=== PATIENT | female | born 1975 | race Caucasian/White ===

== ENCOUNTER 2017-01-30 19:46 | Emergency (ER) | payer OTHER ==
[~2017-01-30] VITALS: Ht 162.6 cm; Wt 58.1 kg
--- NOTE | 2017-01-30 20:06 | NUR ---
to bed 2 ambulatory c/o generalized body pain since this morning. pt aaox4 no acute distress noted, resp even and unlabored. pt denies trauma. pending er md soriano.
[2017-01-30] MEDS ORDERED: ONDANSETRON 4 MG TAB.RAPDIS SL ONE (20:30)
[2017-01-30] MEDS ORDERED: DIAZEPAM 10 MG TABLET PO ONE (20:30)
[2017-01-30] MEDS ORDERED: MORPHINE SULFATE INJ 2 MG/ML DISP.SYRIN IM ONE (20:30)
[2017-01-30] MEDS ORDERED: ONDANSETRON 4 MG TAB.RAPDIS ONE (20:43)
[2017-01-30] MEDS ORDERED: MORPHINE SULFATE INJ 4 MG/ML DISP.SYRIN ONE (20:43)
[2017-01-30] MEDS ORDERED: DIAZEPAM 10 MG TABLET ONE (20:43)
--- NOTE | 2017-01-30 20:52 | NUR ---
pt medicated as ordered.
--- NOTE | 2017-01-30 21:29 | NUR ---
pt back from radiology. pending ct cervical spine result.
--- NOTE | 2017-01-30 22:22 | NUR ---
Patient discharged to home in stable condition. Written and verbal after care instructions given. Patient verbalizes understanding of instruction. ambulatory with a steady gait noted. pt aaox4 no acute distress noted, resp even and unlabored. advice pt not to drive or operate any machinery due to pt was given narcotic medicine. pt verbalize understanding.
[2017-01-30 22:24] VITALS: BP 127/62
== END 2017-01-30 22:24 | disposition home or self-care (01) ==
LOC: ER 19:52
DX: M54.12 Radiculopathy, cervical region (principal)
CPT/HCPCS: 72125; 96372; 99284; A4606; J2270; Q0162; Z7610

== ENCOUNTER 2017-02-03 15:59 | Emergency (ER) | payer OTHER ==
[~2017-02-03] VITALS: Ht 162.6 cm; Wt 56.2 kg
[2017-02-03 16:02] VITALS: BP 108/69
[2017-02-03] MEDS ORDERED: ACETAMINOPHEN 325 MG TABLET PO STA (16:25)
[2017-02-03] MEDS ORDERED: ACETAMINOPHEN 325 MG TABLET ONE (16:40)
== END 2017-02-03 17:12 | disposition home or self-care (01) ==
LOC: ER 16:02
DX: M25.511 Pain in right shoulder (principal); G89.29 Other chronic pain
CPT/HCPCS: 73030; 99284; A4606; Z7610

== ENCOUNTER 2017-06-29 12:22 | Inpatient (IN) | payer OTHER ==
[~2017-06-29] VITALS: Ht 162.6 cm; Wt 60.8 kg
[2017-06-29] MEDS ORDERED: HYDROMORPHONE 1 MG/1 ML DISP.SYRIN IV ONE ×2 (13:00→15:30)
[2017-06-29] MEDS ORDERED: PANTOPRAZOLE 40 MG VIAL IV ONE (13:00)
[2017-06-29] MEDS ORDERED: ONDANSETRON HCL/PF 4 MG/2 ML VIAL IV ONE (13:00)
[2017-06-29] MEDS ORDERED: ONDANSETRON HCL/PF 4 MG/2 ML VIAL ONE (13:07)
[2017-06-29] MEDS ORDERED: HYDROMORPHONE 1 MG/1 ML DISP.SYRIN ONE ×2 (13:08→15:09)
[2017-06-29] MEDS ORDERED: FAMOTIDINE/PF INJ 20 MG/2 ML VIAL IV ONE (13:10)
[2017-06-29 13:22] LABS: BASOPHILS % (AUTO) 0.3 % (0.0-2.0); EOSINOPHILS # (AUTO) 0.1 /CMM (0.0-0.7); EOSINOPHILS % (AUTO) 0.7 % (0.0-6.0); HEMATOCRIT 42 % (33-45); HEMOGLOBIN 13.9 g/dL (11.5-14.8); LYMPHOCYTES # (AUTO) 2.5 /CMM (0.8-4.8); LYMPHOCYTES % (AUTO) 22.2 % (20.0-44.0); MEAN CORPUSCULAR HEMOGLOBIN 29 PG (26.0-33.0); MEAN CORPUSCULAR HGB CONC 33 g/dl (31.0-36.0); MEAN CORPUSCULAR VOLUME 88 fL (82-100); MONOCYTES # (AUTO) 0.6 /CMM (0.1-1.30); MONOCYTES % (AUTO) 4.9 % (2.0-12.0); NEUTROPHILS # (AUTO) 8.2 /CMM (1.8-8.9); NEUTROPHILS % (AUTO) 71.9 % (43.0-81.0); PLATELET COUNT (AUTO) 226 /CMM (150-450); RDW COEFFICIENT OF VARIATION 13.5 (11.5-15.0); RED BLOOD CELL COUNT(AUTO) 4.76 MIL/uL (4.0-5.2); WHITE BLOOD COUNT (AUTO) 11.4 K/uL (4.3-11.0)
[2017-06-29 13:23] LABS: ALBUMIN 4.2 g/dL (3.4-5.0); BILIRUBIN,TOTAL 0.4 mg/dL (0.2-1.0); CALCIUM, SERUM 9.3 mg/dL (8.5-10.1); CREATININE 0.6 mg/dL (0.6-1.3); POTASSIUM 3.3 mmol/L (3.5-5.1); TOTAL PROTEIN, SERUM 8.6 g/dL (6.4-8.2)
--- NOTE | 2017-06-29 13:26 | NUR ---
Pt c/o centralized ABD pain, 8-9/10, nausea, dizziness, and ofe rectal bleeding (> 1 cup) this AM. Pt denies CP, SOB, no other complaints, moderate distress noted.
[2017-06-29] MEDS ORDERED: HYDR-552 PO (13:34)
[2017-06-29] MEDS ORDERED: AMIT100T2 PO (13:34)
[2017-06-29] MEDS ORDERED: ZOLP10TA2 PO (13:34)
[2017-06-29 13:50] LABS: INR 0.91 (0.87-1.13); PROTHROMBIN TIME 9.5 SECS (9.5-12.7)
--- NOTE | 2017-06-29 13:57 | NUR ---
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
[2017-06-29] MEDS ORDERED: IOHEXOL-300 100 ML VIAL IV ONE (13:59)
[2017-06-29] MEDS ORDERED: IV NS 0.9% 250 ML IV ONE (13:59)
--- NOTE | 2017-06-29 14:39 | NUR ---
ROOM 108
[2017-06-29] MEDS ORDERED: HYDROCODONE/APAP 5/325MG 1 EACH TABLET PO PRN (15:00)
[2017-06-29] MEDS ORDERED: ONDANSETRON HCL/PF 4 MG/2 ML VIAL IVP PRN (15:00)
[2017-06-29] MEDS ORDERED: Z GUARD REMEDY 2 OZ OINT TP PRN (15:00)
[2017-06-29] MEDS ORDERED: MAGNESIUM HYDROXIDE 30 ML UDC PO PRN (15:00)
[2017-06-29] MEDS ORDERED: ACETAMINOPHEN 325 MG TABLET PO PRN (15:00)
--- NOTE | 2017-06-29 15:25 | NUR ---
Called report to
--- NOTE | 2017-06-29 15:45 | NUR ---
PT RECEIVED FROM ER.
[2017-06-29] MEDS: PANTOPRAZOLE 40 MG VIAL IV SCH (16:11)
[2017-06-29 16:21] LABS: APPEARANCE,URINE CLEAR (CLEAR); BILIRUBIN,URINE NEGATIVE (NEGATIVE); BLOOD, URINE 3+ Ery/uL (NEGATIVE); COLOR,URINE YELLOW (YELLOW); KETONES,URINE NEGATIVE (NEGATIVE); LEUKOCYTE ESTERASE ,URINE NEGATIVE (NEGATIVE); NITRITE, URINE NEGATIVE (NEGATIVE); PROTEIN,URINE NEGATIVE (NEGATIVE); UGLUCOSE NEGATIVE (NEGATIVE); UROBILINOGEN,URINE 0.2 EU/dL (0.2)
[2017-06-29] MEDS ORDERED: MORPHINE SULFATE INJ 10 MG/ML DISP.SYRIN IV PRN (16:30)
[2017-06-29 16:33] VITALS: BP 125/60
[2017-06-29 16:36] LABS: BACTERIA,URINE None seen /HPF (None Seen); RBC,URINE 21-50 /HPF (0-2); SQUAMOUS EPITHELIAL CELL,UR Few /HPF (None Seen); WBC,URINE 0-2 /HPF (0-3)
--- NOTE | 2017-06-29 18:00 | NUR ---
RN CLOSING NOTES PT SLEEPING NOW. ADM 2MG MORPHINE IV X 1 W/ EFFECT FOR 03/11 PAIN. CALL LIGHT IN REACH. NPO. NON SLIP SOCKS ON. ULTRASOUND ABD DONE AT BEDSIDE. PROTONIX IV ADM. PT STATES SHE HAS MENSES AT PRESENT. GUIAC NEGATIVE...
[2017-06-29 18:35] VITALS: BP 143/96
--- NOTE | 2017-06-29 19:30 | NUR ---
RN INITIAL NOTES RECEIVED PT AWAKE ON BED, A/O X4. ON ROOM AIR WITH NO S/S OF RESP DISTRESS, CURRENTLY DENIES ANY PAIN. PT IS CONTINENT, AMBULATORY. LEFT HAND 18G SL, FLUSHED AND PATENT, NO S/S OF INFILTRATION/INFECTION, DRESSING CDI. BED LOW AND LOCKED, SIDERAILS UP, CALL LIGHT WITHIN REACH. WILL MONITOR. Addendum: 06/29/17 at 2003 by CLOTILDE CHOI RN PT IS SR ON THE MONITOR, HR 70'S
[2017-06-29 20:00] VITALS: BP 114/75
--- NOTE | 2017-06-29 21:00 | NUR ---
RN NOTES SPOKE TO RAMOS KAUFFMAN (FOR DR. STONE) AND SHE ORDERED FOR PATIENT TO CONTINUE NPO AFTER MIDNIGHT. MRCP IN AM TO RULE OUT CHOLECYSTITIS. DIRECT AND INDIRECT BILIRUBIN, AND AMYLASE TO BE ADDED FOR AM LABS
[2017-06-29] MEDS: AMITRIPTYLINE HCL 25 MG TABLET PO SCH (21:05)
[2017-06-29] MEDS: ZOLPIDEM TARTRATE 5 MG TABLET PO PRN (21:05)
[2017-06-29] MEDS: MORPHINE SULFATE INJ 4 MG/ML DISP.SYRIN IV PRN (21:09)
[2017-06-29] MEDS ORDERED: LORAZEPAM INJ 2 MG/ML VIAL IV ONE (23:00)
[2017-06-29] MEDS ORDERED: LORAZEPAM INJ 2 MG/ML VIAL IV PRN (23:00)
[2017-06-29] MEDS ORDERED: LORAZEPAM INJ 2 MG/ML VIAL ONE (23:01)
[2017-06-30] VITALS: BP 91/54
[2017-06-30] MEDS: MORPHINE SULFATE INJ 4 MG/ML DISP.SYRIN IV PRN ×3 (01:20→10:36)
[2017-06-30 04:00] VITALS: BP_SYST 96; BP_SYST 97; BP_DIAS 61; BP_DIAS 65
--- NOTE | 2017-06-30 06:30 | NUR ---
RN CLOSING NOTES PT REMAINS STABLE OF THE MOMENT. ALL DUE MEDS GIVEN, AM CARE PROVIDED. WILL ENDORSE MARANDA TO AM RN
[2017-06-30 06:53] LABS: BASOPHILS % (AUTO) 0.4 % (0.0-2.0); EOSINOPHILS # (AUTO) 0.1 /CMM (0.0-0.7); EOSINOPHILS % (AUTO) 1.8 % (0.0-6.0); HEMATOCRIT 34 % (33-45); HEMOGLOBIN 11.6 g/dL (11.5-14.8); LYMPHOCYTES # (AUTO) 2.9 /CMM (0.8-4.8); LYMPHOCYTES % (AUTO) 42.7 % (20.0-44.0); MEAN CORPUSCULAR HEMOGLOBIN 30 PG (26.0-33.0); MEAN CORPUSCULAR HGB CONC 34 g/dl (31.0-36.0); MEAN CORPUSCULAR VOLUME 87 fL (82-100); MONOCYTES # (AUTO) 0.4 /CMM (0.1-1.30); MONOCYTES % (AUTO) 5.5 % (2.0-12.0); NEUTROPHILS # (AUTO) 3.4 /CMM (1.8-8.9); NEUTROPHILS % (AUTO) 49.6 % (43.0-81.0); PLATELET COUNT (AUTO) 199 /CMM (150-450); RED BLOOD CELL COUNT(AUTO) 3.88 MIL/uL (4.0-5.2); WHITE BLOOD COUNT (AUTO) 6.8 K/uL (4.3-11.0)
[2017-06-30 07:12] LABS: ALBUMIN 3.1 g/dL (3.4-5.0); BILIRUBIN,TOTAL 0.2 mg/dL (0.2-1.0); CALCIUM, SERUM 8.3 mg/dL (8.5-10.1); CREATININE 0.6 mg/dL (0.6-1.3); MAGNESIUM 2.2 mg/dL (1.8-2.4); POTASSIUM 3.7 mmol/L (3.5-5.1); TOTAL PROTEIN, SERUM 6.5 g/dL (6.4-8.2)
[2017-06-30 08:00] VITALS: BP 98/66
--- NOTE | 2017-06-30 08:00 | NUR ---
TELE1/RN AM SHIFT INITIAL NOTES RECEIVED PT AWAKE SITTING IN BED, PT A/O X 4, COMPLAINT OF DISCOMFORT IN THE ABDOMINAL AREA AND CHILLS. NO FEVER, WARM BLANKETS GIVEN. ON NPO STATUS FOR MRCP PROCEDURE THIS MORNING. NOTED LIQUID STOOL WITH FRESH BLOOD, COLLECTED FOR STOOL OB. ON ROOM AIR SATURATING @ 99%, ON TELE WITH SINUS RHYTHM, HR 86. IV SITE FLUSHED, PATENT WITH NO S/S OF INFECTION, SL. SCHEDULED AM MEDS TO BE GIVEN. CL WITHIN REACHED AND SAFETY MAINTAINED. ON GOING MONITORING.
--- NOTE | 2017-06-30 08:35 | NUR ---
TELE1/RN ROUNDS - DR. PEDROZA UPDATED PT'S CONDITION. PT SEEN & EXAMINED BY DR. PEDROZA. NO NEW ORDERS RECEIVED AT THIS TIME. MONITORING CONTINUED.
--- NOTE | 2017-06-30 08:42 | NUR ---
TELE1/RN OFF FLOOR - MRCP PT LEFT TELE1 UNIT IN STABLE CONDITION VIA WHEELCHAIR FOR MRCP PROCEDURE.
[2017-06-30] MEDS: PANTOPRAZOLE 40 MG VIAL IV SCH ×2 (09:34→16:59)
--- NOTE | 2017-06-30 09:47 | NUR ---
TELE1/RN ROUNDS - DR. JAIN PT BACK ON FLOOR POST [facility]. UPDATED PT'S CONDITION. PT SEEN & EXAMINED BY DR. JAIN, WITH NEW ORDER RECEIVED TO START PT ON CLEAR LIQUIDS. ORDER NOTED AND CARRIED. Addendum: 06/30/17 at 1118 by SITA ALONSO RN ADDENDUM: ALSO NOTIFIED DR. JAIN REGARDING LIQUID BLOODY STOOL COLLECTED.
--- NOTE | 2017-06-30 11:00 | NUR ---
TELE1/RN SEVERE ABDOMINAL PAIN ANSWERED PT'S CALL COMPLAINT OF SEVERE ABDOMINAL PAIN RATED 10/10 AFTER RECEIVING PRN MORPHINE. SPOKE TO DR. JAIN, UPDATED PT'S CONDITION. NEW ORDER RECEIVED FOR DILAUDID 1MG Q4HRS PRN FOR SEVERE PAIN. ORDER NOTED AND CARRIED.
[2017-06-30] MEDS: HYDROMORPHONE 1 MG/1 ML DISP.SYRIN IV PRN ×3 (11:07→21:09)
[2017-06-30 12:00] VITALS: BP 122/83
[2017-06-30] MEDS: MAG HYDROX/AL HYDROX/SIMETH 30 ML UDC PO PRN (12:56)
[2017-06-30] MEDS: HYDROMORPHONE INJ 2 MG/ML DISP.SYRIN IV PRN ×2 (13:18→17:07)
--- NOTE | 2017-06-30 14:00 | NUR ---
TELE1/RN EGD - CONSENT CONSENT OF EGD OBTAINED FROM PT, FILED IN CHART. DRs. PEDROZA & CRISTOBAL MADE AWARE. PROCEDURE SCHEDULED @ 9:30AM TOMORROW, 07/01/17.
--- NOTE | 2017-06-30 15:00 | NUR ---
TELE1/RN ROUNDS - DR. CASTILLO PT SEEN & EXAMINED BY DR. CASTILLO. NO NEW ORDERS RECEIVED AT THIS TIME. ON GOING MONITORING.
[2017-06-30 16:00] VITALS: BP_SYST 109; BP_DIAS 64; BP_DIAS 69
[2017-06-30] MEDS: LORAZEPAM 1 MG TABLET PO PRN (18:23)
--- NOTE | 2017-06-30 18:35 | NUR ---
TELE1/RN RAPID RESPONSE PT COMPLAINT OF SOB, VERBALIZED THAT SHE FEELS SOMETHING IS STUCK IN HER THROAT. PT ASSESSED, LUNG SOUNDS ARE CLEAR, SATURATING @ 100%, SHE DENIES PAIN. PRN ATIVAN GIVEN. STILL INSISTED SHE CAN'T BREATHE, RESPIRATIONS ARE NORMAL. CHARGE NURSE AND DR. JAIN NOTIFIED. RAPID RESPONSE CALLED IN. WITH ORDERS FROM DR. HENRY FOR STAT CHEST, THROAT & NECK X-RAY, ABG AND EKG. WITH PATIENT MONITORING. Addendum: 06/30/17 at 7 by SITA ALONSO RN ADDENDUM: PT PLACED ON NON-REBREATHER MASK.
--- NOTE | 2017-06-30 19:05 | NUR ---
PROCESSING TECH OPENING NOTES RECEIVED REPORT FROM VERENICE IVY. PATIENT A/A/O X4, S/P RAPID RESPONSE. CURRENTLY ON NON-BREATHER MASK W/O LABORED BREATHING NOTED. SATING WELL @ 99%. DENIES SOB @ THIS TIME. ON TELE SINUS RHYTHM-SINUS TACH IN THE 100S. DENIES ANY CHEST PAIN OR DISCOMFORT. LEFT HAND IV #18 INTACT & PATENT W/ DRESSING CDI. ABDOMEN SOFT & NON-DISTENDED UPON ASSESSMENT. DENIES ANY ABDOMINAL PAIN OR DISCOMFORT @ THIS TIME. SAFETY MEASURES IN PLACE W/ SIDE RAILS UP, BED LOCKED IN LOWEST POSITION & CALL LIGHT WITHIN REACH. SISTER @ BEDSIDE. WILL CONTINUE TO MONITOR.
[2017-06-30 19:37] LABS: ABG BASE EXCESS -3.5 mmol/L; ABG OXYGEN SATURATION 98.7 % (92.0-98.5); ABG PCO2 39.6 mmHg (35.0-45.0); ABG PH 7.356 (7.350-7.450); AaDO2 293.4 mmHg; COHb 0.3 % (0.5-1.5); MetHb 0.6 % (0.0-1.5); O2Hb 97.8 % (94.0-97.0); SITE, ABG Left Radial
--- NOTE | 2017-06-30 19:56 | NUR ---
TELE1/RN AM SHIFT END NOTES STAT EKG, RESULT SINUS TACHY, ABG WAS NORMAL, CHEST X-RAY NORMAL. AWAITING FOR RESULTS OF THROAT AND NECK. PT PLACED BACK ON ROOM AIR SATURATING @ 97-100%, DENIES SOB. PT ENDORSED TO PM NURSE TO CONTINUE CARE. ALSO ENDORSED TO PLACE PT NPO AFTER MIDNIGHT FOR EGD SCHEDULED @ 0930 AND TO COMPLETE PRE-OP CHECKLIST. CL WITHIN REACHED AND SAFETY MAINTAINED.
[2017-06-30 20:00] VITALS: BP 116/79
[2017-06-30] MEDS: ZOLPIDEM TARTRATE 5 MG TABLET PO PRN (21:08)
[2017-06-30] MEDS: AMITRIPTYLINE HCL 25 MG TABLET PO SCH (21:08)
[2017-07-01] VITALS: BP 111/73
[2017-07-01] MEDS: HYDROMORPHONE INJ 2 MG/ML DISP.SYRIN IV PRN ×4 (00:06→20:30)
[2017-07-01 04:00] VITALS: BP 117/72
[2017-07-01 06:44] LABS: BASOPHILS % (AUTO) 0.3 % (0.0-2.0); EOSINOPHILS # (AUTO) 0.1 /CMM (0.0-0.7); EOSINOPHILS % (AUTO) 1.6 % (0.0-6.0); HEMATOCRIT 35 % (33-45); HEMOGLOBIN 12.1 g/dL (11.5-14.8); LYMPHOCYTES # (AUTO) 2.1 /CMM (0.8-4.8); LYMPHOCYTES % (AUTO) 25.6 % (20.0-44.0); MEAN CORPUSCULAR HEMOGLOBIN 30 PG (26.0-33.0); MEAN CORPUSCULAR HGB CONC 34 g/dl (31.0-36.0); MEAN CORPUSCULAR VOLUME 87 fL (82-100); MONOCYTES # (AUTO) 0.6 /CMM (0.1-1.30); MONOCYTES % (AUTO) 7.2 % (2.0-12.0); NEUTROPHILS # (AUTO) 5.4 /CMM (1.8-8.9); NEUTROPHILS % (AUTO) 65.3 % (43.0-81.0); PLATELET COUNT (AUTO) 213 /CMM (150-450); RDW COEFFICIENT OF VARIATION 13.6 (11.5-15.0); RED BLOOD CELL COUNT(AUTO) 4.05 MIL/uL (4.0-5.2); WHITE BLOOD COUNT (AUTO) 8.3 K/uL (4.3-11.0)
[2017-07-01 07:02] LABS: CALCIUM, SERUM 8.6 mg/dL (8.5-10.1); CREATININE 0.7 mg/dL (0.6-1.3); POTASSIUM 3.8 mmol/L (3.5-5.1)
--- NOTE | 2017-07-01 07:10 | NUR ---
RN NOTES RECEIVED PT ON BED, A/O x4, ON RA , RESPIRATION EVEN AND UNLABORED, NO DISTRESS NOTED, NPO THIS AM FOR EGD, LOUIS ANY DISTRESS , ON TELE SR IN 90'S , LEFT HAND IV #18 INTACT & PATENT W/ DRESSING CDI. SR UP x3, SAFETY MEASURES IN PLACE , BED LOCKED IN LOWEST POSITION , CALL LIGHT WITHIN REACH REACH . WILL CONTINUE TO MONITOR CLOSELY
[2017-07-01] MEDS: LORAZEPAM 1 MG TABLET PO PRN ×4 (07:44→20:31)
[2017-07-01 08:00] VITALS: BP 107/70
[2017-07-01] MEDS: PANTOPRAZOLE 40 MG VIAL IV SCH ×2 (08:13→16:39)
--- NOTE | 2017-07-01 09:13 | NUR ---
RN NOTES PT GOING OT OR FOR EGD
--- NOTE | 2017-07-01 10:20 | NUR ---
RN NOTES PT BACK FROM OR , BP =109/70 , HR 101, R=18, PT LOUIS ANY DISTRESS .CONTINUE TO MONITOR .
[2017-07-01 12:00] VITALS: BP_SYST 98; BP_DIAS 57; BP_DIAS 59
[2017-07-01 16:00] VITALS: BP 103/69
--- NOTE | 2017-07-01 16:00 | NUR ---
RN NOTES 3 LARGE BLOODY LOOSE STOOL NOTED , DR JAIN NOTIFIED, NOW NEW ORDER GIVEN , PT DISTRESS NOTED VSS STABLE , CONTINUE TO MONITOR
--- NOTE | 2017-07-01 18:38 | NUR ---
RN NOTES PT OUT OF BED WALKING IN THE ROOM, VSS STABLE , R ARM IV SITED CDI, PT ON CLEAR LIQUID DIET , NO SIGNIFICANT CHANGES NOTED ON THIS SHIFT , WILL ENDORSE TO FIREWORKS INSPECTOR NURSE FOR MARANDA .
--- NOTE | 2017-07-01 19:30 | NUR ---
TELE/RN NOTES: RECEIVED PT. IN BED W/ FAMILY MEMBER BY BESIDE. A/O X 3. ON TELE ST @ 95. RESPIRATIONS EVEN AND UNLABORED. NOT IN ANY ACUTE DISTRESS NOTED. HL ON LFA PATENT AND INTACT W/ NO S/S OF INFECTION/INFILTRATION NOTED. PT. APPEARS TO BE VERY ANXIOUS. CALL LIGHT W/ REACH. WILL CONTINUE TO MONITOR.
[2017-07-01] MEDS: MAG HYDROX/AL HYDROX/SIMETH 30 ML UDC PO PRN (19:44)
[2017-07-01 20:00] VITALS: BP 104/72
--- NOTE | 2017-07-01 20:40 | NUR ---
TELE/RN NOTES: PT. CALLED REALLY ANXIOUS STATING THAT SHE HAS BEEN BLEEDING SO WHY HAVE NOT THEY INFUSED ANY BLOOD TO ME. EXPLAINED PT. HER LAB VALUES AND PROTOCOL TO TRANSFUSE. PT. REQUESTED MEDICATION FOR PAIN AND ANXIETY. GAVE PER ORDER W/ GOOD RELIEF. CALL LIGHT W/REACH.
[2017-07-01] MEDS: AMITRIPTYLINE HCL 25 MG TABLET PO SCH (21:13)
[2017-07-01] MEDS: ZOLPIDEM TARTRATE 5 MG TABLET PO PRN (22:54)
[2017-07-02] VITALS: BP_SYST 102; BP_SYST 110; BP_DIAS 60; BP_DIAS 70
--- NOTE | 2017-07-02 02:00 | NUR ---
RN NOTES SPOKE TO PATIENT SUPPORT SPECIALIST RAHUL. AT THIS TIME, NO SCHEDULE FOR COLONOSCOPY.
[2017-07-02] MEDS: MAG HYDROX/AL HYDROX/SIMETH 30 ML UDC PO PRN ×2 (03:25→18:50)
[2017-07-02] MEDS: HYDROMORPHONE INJ 2 MG/ML DISP.SYRIN IV PRN ×3 (03:26→11:34)
[2017-07-02 04:00] VITALS: BP 102/70
[2017-07-02 06:44] LABS: BASOPHILS % (AUTO) 0.6 % (0.0-2.0); EOSINOPHILS # (AUTO) 0.2 /CMM (0.0-0.7); EOSINOPHILS % (AUTO) 2.7 % (0.0-6.0); HEMATOCRIT 36 % (33-45); HEMOGLOBIN 12.1 g/dL (11.5-14.8); LYMPHOCYTES # (AUTO) 2.6 /CMM (0.8-4.8); LYMPHOCYTES % (AUTO) 43.6 % (20.0-44.0); MEAN CORPUSCULAR HEMOGLOBIN 29 PG (26.0-33.0); MEAN CORPUSCULAR HGB CONC 34 g/dl (31.0-36.0); MEAN CORPUSCULAR VOLUME 87 fL (82-100); MONOCYTES # (AUTO) 0.4 /CMM (0.1-1.30); MONOCYTES % (AUTO) 6.7 % (2.0-12.0); NEUTROPHILS # (AUTO) 2.8 /CMM (1.8-8.9); NEUTROPHILS % (AUTO) 46.4 % (43.0-81.0); PLATELET COUNT (AUTO) 220 /CMM (150-450); RED BLOOD CELL COUNT(AUTO) 4.13 MIL/uL (4.0-5.2); WHITE BLOOD COUNT (AUTO) 6.1 K/uL (4.3-11.0)
--- NOTE | 2017-07-02 07:00 | NUR ---
RN OPENING NOTES RECV'D REPORT FROM NOC RN. PT ANXIOUS ABOUT HEALTH STATUS. RT PLACED PT ON NON REBREATHER O2 SATS 100%. WILL ADM ATIVAN PO. INFORMED PT GI DR. PEDROZA TO CONSULT TODAY FOR POSSIBLE COLONOSCOPY PER DR. JAIN'S NOTES. HGB HOLDING AT 12.1. LFA22G PIV. CLEAR LIQUIDS. DENIES PAIN AT PRESENT. BED IN LOW LOCKED POSITION. CALL LIGHT IN REACH. WILL CONT TO MONITOR.
--- NOTE | 2017-07-02 07:00 | NUR ---
RN OPENING NOTES RECV'D REPORT FROM RAMU RN. PT OBTUNDED NON VERBAL EYES OPEN. VENT TRACH NPO X MEDS. GT CLAMPED. RH 20G PIV. ADULT PROTECTIVE SERVICES REPORT PER RAMU RN DUE TO HOME NEGLECT SUSPECTED FROM MULTIPLE HOSPITALIZATIONS. DECUB STAGE III COCCYX MULTIPLE. OROZCO YELLOW CLOUDY OUTPUT. DEEP SUCTIONED PT SATS WENT FROM 90% UP TO 100% NOW. BED IN LOW LOCKED POSITION. CALL LIGHT IN REACH. WILL CONT TO MONITOR CLOSELY. Addendum: 07/02/17 at 0839 by CHRISTIE GUARDADO RN HOB ELEVATED. Addendum: 07/02/17 at 1751 by CHRISTIE GUARDADO RN ENTERED ON WRONG PT
[2017-07-02 07:08] LABS: CALCIUM, SERUM 8.7 mg/dL (8.5-10.1); CREATININE 0.7 mg/dL (0.6-1.3)
--- NOTE | 2017-07-02 07:16 | NUR ---
TELE/RN NOTES: PT. C/O PAIN GAVE DILAUDID 2 MGS IV PER ORDER AT 0630 . PT. RECHECKED AT 0700 PAIN IS MUCH BETTER PER PT. NOT IN ANY RESPIRATORY DISTRESS NOTED. CALL LIGHT W/ REACH. REPORT GIVEN TO NEXT SHIFT NURSE.
[2017-07-02] MEDS: LORAZEPAM 1 MG TABLET PO PRN ×3 (07:52→18:50)
[2017-07-02] MEDS: PANTOPRAZOLE 40 MG VIAL IV SCH ×2 (07:52→17:24)
[2017-07-02 08:00] VITALS: BP 114/79
[2017-07-02] MEDS ORDERED: BISACODYL (5 MG) 5 MG TABLET.DR PO ONE (09:00)
[2017-07-02] MEDS ORDERED: PEG 3350/NA SULF,BICARB,CL/KCL 4,000 ML BOTTLE PO ONE ×2 (09:00→13:30)
--- NOTE | 2017-07-02 09:03 | NUR ---
DR. PEDROZA CALLED BY PHONE TO ORDER GOLYTELY, NPO X MEDS, BISACODYL. WANTS ME TO CALL HIM IN AFTERNOON WITH STATUS OF STOOL COLOR. IF CLEAR HE WILL TRY TO PERFORM COLONOSCOPY TODAY.
[2017-07-02 12:00] VITALS: BP 112/77
--- NOTE | 2017-07-02 13:20 | NUR ---
UPDATED DR. PEDROZA REGARDING STOOL COLOR. PT HAS HAD 3 WATERY, RED, PARTICULATE STOOLS AFTER BISACODYL AND ONE BOTTLE GOLYTELY. NEW ORDER FOR SECOND BOTTLE GOLYTELY ORDERED AND PLAN FOR COLONSOSCOPY EARLY POSSIBLE IN AM.
[2017-07-02 16:00] VITALS: BP_SYST 111; BP_SYST 112; BP_DIAS 76; BP_DIAS 77
--- NOTE | 2017-07-02 17:53 | NUR ---
RN CLOSING NOTES PT STARTED ON SECOND BOTTLE OF GLOYTELY. BMs STILL RED WITH PARTICULATES. PLAN FOR COLONSCOPY N AM. NPO. WILL ENDORSE TO RAMU IVY.
--- NOTE | 2017-07-02 18:50 | NUR ---
PATIENT C/O ABDOMINAL PAIN 06/11 PER PATIENT VERBALIZED "I NEED DILAUDID',offered tylenol/maalox refused,md notified ,with new orders left and carried out.per md no narcotics pt. need to take prn tylenol/maalox.increase the dose of ativan to q 4hours,will endorsed .
--- NOTE | 2017-07-02 19:30 | NUR ---
RN/MS NOTES: RECEIVED PT. IN BED W/ HOB ELEVATED. A/O X 4. W/ O2 @ 2LPM VIA N/C SAT. 96%. PT. W/ HER 2ND BOTTLE OF GOLYTLE FOR COLONOSCOPY IN AM. FAMILY AT BESIDE. NOT IN ANY ACUTE RESPIRATORY DISTRESS NOTED. NPO STATUS MAINTAINED. CALL LIGHT W/REACH. ALL NEEDS MEET. WILL CONTINUE TO MONITOR.
[2017-07-02 20:00] VITALS: BP 111/74
[2017-07-02] MEDS: AMITRIPTYLINE HCL 25 MG TABLET PO SCH (21:21)
[2017-07-02] MEDS: ZOLPIDEM TARTRATE 5 MG TABLET PO PRN (21:26)
--- NOTE | 2017-07-02 23:06 | NUR ---
RN/MS NOTES: PT. ENCOURAGED TO FINISH HER GOLYTLE BEFORE THE MORNING FOR HER COLONOSCOPY . " I WILL FINISH IT IN THE MORNING. ADVISED TO FINISH SO HER STOMACH CAN BE CLEAR. "I AM TRYING BUT I CAN ONLY DO IT SLOWLY." WILL CONTINUE TO MONITOR. CALL LIGHT W/ REACH.
--- NOTE | 2017-07-03 01:00 | NUR ---
RN/MS NOTES: PT. SLEEPING W/ RESPIRATIONS EVEN AND UNLABORED. PT. IS SNORING. WAKED UP PT. TO FINISH HER GOLYTLY BUT SAID THAT SHE WANTS TO SLEEP. SHE HAD NOT ANY ANY SLEEP FOR LAST FEW DAYS. WILL TRY TO ENCOURAGE PT. TO FINISH THE PREP. CALL LIGHT W/REACH.
--- NOTE | 2017-07-03 02:54 | NUR ---
RN/MS NOTES: PT. SOUND ASLEEP SNORING. TRIED TO WAKE UP PT. BUT STILL SLEEPING. NOT IN ANY ACUTE RESPIRATORY DISTRESS NOTED.
[2017-07-03 04:00] VITALS: BP 107/75
--- NOTE | 2017-07-03 04:26 | NUR ---
RN/MS NOTES: PT. SLEEPING BUT EASILY AROUSABLE. TRIED TO WAKE UP TO FINISH BOWEL PREP FOR COLONOSCOPY. PT. NODDED YES OPENED HER EYES AND WENT BACK TO SLEEP. NOT IN ANY RESPIRATORY DISTRESS. RESPIRATIONS EVEN AND UNLABORED.
--- NOTE | 2017-07-03 06:04 | NUR ---
RN/MS NOTES: PT. STILL SNORING AND SLEEPING. RESPIRATIONS EVEN AND UNLABORED. HAD TWO BM THIS SHIFT SOFT BROWN SMALL. WILL ENDORSE NEXT SHIFT TO CONTINUE POC.
--- NOTE | 2017-07-03 06:51 | NUR ---
RN/MS NOTES: TRIED TO WAKE UP PT. AGAIN BUT STILL SLEEPY . WILL ENDORSE TO NEXT SHIFT FOR MARANDA.
--- NOTE | 2017-07-03 07:00 | NUR ---
RN OPENING NOTES REPORT RECV'D FROM NOC RN. PT RESTING COMFORTABLY IN BED. APPROXIMATELY 25% OF GOLYTELY REMAINING. "LIGHT BROWN" WATERY STOOLS PER NOC RN. ENCOURAGED PT TO COMPLETE GOLYTELY. PLAN FOR COLONOSCOPY THIS AM. LFA 22G PIV PATENT. BED IN LOW LOCKED POSITION. NPO X MEDS SINCE YESTERDAY. CALL LIGHT IN REACH. WILL CONT TO MONITOR.
[2017-07-03 08:00] VITALS: BP 122/74
[2017-07-03] MEDS ORDERED: ANESTHESIA TRAY IN PYXIS 1 EA TRAY MC ONE (08:07)
[2017-07-03] MEDS: PANTOPRAZOLE 40 MG VIAL IV SCH (09:04)
--- NOTE | 2017-07-03 09:45 | NUR ---
SENT TO COLONOSCOPY PROCEDURE.
--- NOTE | 2017-07-03 11:09 | NUR ---
RETURNED TO UNIT FROM COLONOSCOPY. NURSE STATES "COLITIS". PT TO START ON CLEARS AND LACTATED RINGERS SOLUTION. PT A&OX4. WILL MONITOR VS PER PROTOCOL.
[2017-07-03] MEDS: LORAZEPAM 1 MG TABLET PO PRN (11:19)
[2017-07-03] MEDS: MAG HYDROX/AL HYDROX/SIMETH 30 ML UDC PO PRN (11:19)
--- NOTE | 2017-07-03 13:45 | NUR ---
RN D/C NOTES D/C IV. WALKED PT TO CAR. DENIES DIZZINESS. A&OX4.
== END 2017-07-03 15:18 | disposition home or self-care (01) | DRG 254 ==
LOC: ER 12:24 → MEDSG1 15:29 → TELE1 19:21 → MEDSG1 07-02 12:47
PROVIDERS: ADMIT Family Medicine; ATTEND Family Medicine
PROC: 0DB68ZZ Excision of Stomach, Via Natural or Artificial Opening Endoscopic (ICD-10-PCS; principal; 2017-07-01 09:47)
PROC: 0DD78ZX Extraction of Stomach, Pylorus, Via Natural or Artificial Opening Endoscopic, Diagnostic (ICD-10-PCS; principal; 2017-07-01 09:47)
PROC: 0DDE8ZX Extraction of Large Intestine, Via Natural or Artificial Opening Endoscopic, Diagnostic (ICD-10-PCS; 2017-07-03)
DX: K31.7 Polyp of stomach and duodenum (principal); K56.7 Ileus, unspecified; F41.9 Anxiety disorder, unspecified; K92.2 Gastrointestinal hemorrhage, unspecified; R13.10 Dysphagia, unspecified; D25.9 Leiomyoma of uterus, unspecified; E87.6 Hypokalemia; K76.9 Liver disease, unspecified; K58.0 Irritable bowel syndrome with diarrhea; M47.9 Spondylosis, unspecified; M50.322 Other cervical disc degeneration at C5-C6 level; D18.03 Hemangioma of intra-abdominal structures; K83.8 Other specified diseases of biliary tract; D72.829 Elevated white blood cell count, unspecified
CPT/HCPCS: 36415; 36600; 70360-TC; 71010-TC; 74000-TC; 74181-TC; 76700-TC; 80048-TC; 80053-TC; 81000-TC; 82105; 82150-TC; 82272-TC; 82962-TC; 83540-TC; 83690-TC; 83735-TC; 84100-TC; 84703-TC; 85025-TC; 85730-TC; 86850-TC; 87081-TC; 88305-TC; 88313-TC; 88342; A4606; C9113; J1170; J2060; J2270; J2405; J2704; J3490; J7050; J7120; Q9967; Z7610

== ENCOUNTER 2017-07-09 12:12 | Outpatient (CLI) | payer OTHER ==
[~2017-07-09 12:12] MED LIST: AMIT100T2 PO; HYDR-552 PO; ZOLP10TA2 PO
[2017-07-09] MEDS ORDERED: ZOLPIDEM TARTRATE 10 MG TABLET PO PRN (12:30)
[2017-07-09] MEDS ORDERED: HYDROCODONE/APAP 5/325MG 1 EACH TABLET PO PRN (12:30)
[2017-07-09 12:34] VITALS: BP 116/88
[2017-07-09] MEDS ORDERED: Medication Not On Formulary EA (Amitriptyline Hcl 100 MG) PO SCH (22:00)
== END 2017-07-09 23:59 | disposition home or self-care (01) ==
LOC: MSC 12:12
PROVIDERS: ATTEND Internal Medicine
DX: D18.03 Hemangioma of intra-abdominal structures (principal); F41.9 Anxiety disorder, unspecified; F32.9 Major depressive disorder, single episode, unspecified

== ENCOUNTER 2018-01-12 17:36 | Emergency (ER) | payer OTHER ==
[~2018-01-12] VITALS: Ht 162.6 cm; Wt 61.2 kg
[2018-01-12] MEDS ORDERED: KETOROLAC TROMETHAMINE INJ 30 MG/ML VIAL ONE (18:10)
[2018-01-12] MEDS ORDERED: KETOROLAC TROMETHAMINE INJ 60 MG/2 ML VIAL IM ONE (18:30)
[2018-01-12] MEDS ORDERED: ACETAMINOPHEN 650 MG/20.3 ML UDC PO ONE (18:30)
[2018-01-12] MEDS ORDERED: ACETAMINOPHEN 325 MG TABLET ONE (18:31)
[2018-01-12 18:45] VITALS: BP 125/80
== END 2018-01-12 18:46 | disposition home or self-care (01) ==
LOC: ER 17:40
DX: M54.2 Cervicalgia (principal); J06.9 Acute upper respiratory infection, unspecified; R05 Cough; Z98.890 Other specified postprocedural states
CPT/HCPCS: A4606; J1885; Z7610

== ENCOUNTER 2018-01-31 13:29 | Emergency (ER) | payer OTHER ==
[~2018-01-31] VITALS: Ht 162.6 cm; Wt 58.1 kg
[2018-01-31 13:37] VITALS: BP 126/72
== END 2018-01-31 14:56 | disposition home or self-care (01) ==
LOC: ER 13:33
DX: R21 Rash and other nonspecific skin eruption (principal); Z98.890 Other specified postprocedural states; Z60.2 Problems related to living alone
CPT/HCPCS: A4606; Z7610

== ENCOUNTER 2018-04-07 12:52 | Outpatient (CLI) | payer OTHER ==
[2018-04-07 12:53] VITALS: BP 100/60
== END 2018-04-07 23:59 | disposition home or self-care (01) ==
LOC: MSC 12:52
PROVIDERS: ATTEND Internal Medicine
DX: R10.13 Epigastric pain (principal); F32.9 Major depressive disorder, single episode, unspecified; F41.9 Anxiety disorder, unspecified; D18.09 Hemangioma of other sites

== ENCOUNTER 2018-04-07 13:27 | Emergency (ER) | payer OTHER ==
[~2018-04-07] VITALS: Ht 157.5 cm; Wt 60.8 kg
--- NOTE | 2018-04-07 13:45 | NUR ---
Came to ER c/o epigastric and L sided abd pain with nausea and vomiting since last night. RR is even and unlabored with NAD noted. skin is warm and non diaphoretic. Assisted to hospital gown. Awaiting md for eval. Will continuously monitor the patient.
[2018-04-07] MEDS ORDERED: MAG HYDROX/AL HYDROX/SIMETH 30 ML UDC ONE (14:25)
[2018-04-07] MEDS ORDERED: ONDANSETRON HCL/PF 4 MG/2 ML VIAL ONE (14:25)
[2018-04-07] MEDS ORDERED: HYDROCODONE/APAP 5/325MG 1 EACH TABLET ONE (14:26)
[2018-04-07] MEDS ORDERED: FAMOTIDINE/PF INJ 20 MG/2 ML VIAL IV ONE (14:26)
[2018-04-07] MEDS: FAMOTIDINE/PF INJ 20 MG/2 ML VIAL IV ONE (14:29)
[2018-04-07] MEDS: MAG HYDROX/AL HYDROX/SIMETH 30 ML UDC PO ONE (14:30)
[2018-04-07] MEDS: HYDROCODONE/APAP 5/325MG 1 EACH TABLET PO ONE (14:31)
[2018-04-07] MEDS: ONDANSETRON HCL/PF 4 MG/2 ML VIAL IV ONE (14:31)
[2018-04-07 14:46] LABS: BASOPHILS % (AUTO) 0.6 % (0.0-2.0); EOSINOPHILS % (AUTO) 1.2 % (0.0-6.0); HEMATOCRIT 42 % (33-45); HEMOGLOBIN 13.5 g/dL (11.5-14.8); LYMPHOCYTES # (AUTO) 1.9 /CMM (0.8-4.8); LYMPHOCYTES % (AUTO) 31.2 % (20.0-44.0); MEAN CORPUSCULAR HEMOGLOBIN 28 PG (26.0-33.0); MEAN CORPUSCULAR HGB CONC 33 g/dl (31.0-36.0); MEAN CORPUSCULAR VOLUME 84 fL (82-100); MONOCYTES # (AUTO) 0.3 /CMM (0.1-1.30); MONOCYTES % (AUTO) 5.6 % (2.0-12.0); NEUTROPHILS # (AUTO) 3.9 /CMM (1.8-8.9); NEUTROPHILS % (AUTO) 61.4 % (43.0-81.0); PLATELET COUNT (AUTO) 288 /CMM (150-450); RDW COEFFICIENT OF VARIATION 12.2 (11.5-15.0); RED BLOOD CELL COUNT(AUTO) 4.92 MIL/uL (4.0-5.2); WHITE BLOOD COUNT (AUTO) 6.2 K/uL (4.3-11.0)
[2018-04-07 14:55] LABS: APPEARANCE,URINE Clear (CLEAR); BILIRUBIN,URINE Negative (NEGATIVE); BLOOD, URINE Negative Ery/uL (NEGATIVE); COLOR,URINE Yellow (YELLOW); KETONES,URINE Negative (NEGATIVE); LEUKOCYTE ESTERASE ,URINE Negative (NEGATIVE); NITRITE, URINE Negative (NEGATIVE); PH,URINE 6.5 (5.0-8.0); PROTEIN,URINE Negative (NEGATIVE); UGLUCOSE Negative (NEGATIVE); UROBILINOGEN,URINE 0.2 EU/dL (0.2)
[2018-04-07 14:56] LABS: CALCIUM, SERUM 8.9 mg/dL (8.5-10.1); CREATININE 0.7 mg/dL (0.6-1.3); POTASSIUM 3.2 mmol/L (3.5-5.1)
[2018-04-07 15:03] LABS: ALBUMIN 4.1 g/dL (3.4-5.0); BILIRUBIN,TOTAL 0.3 mg/dL (0.2-1.0)
[2018-04-07] MEDS ORDERED: ONDANSETRON 4 MG TAB.RAPDIS ONE (16:08)
[2018-04-07] MEDS: ONDANSETRON 4 MG TAB.RAPDIS SL ONE (16:10)
--- NOTE | 2018-04-07 16:52 | NUR ---
Patient discharged to home in stable condition. Written and verbal after care instructions given. Patient verbalizes understanding of instruction.IV removed. Catheter intact and site benign. Pressure and 4x4 applied to site. No bleeding noted.
[2018-04-07 16:53] VITALS: BP 121/68
== END 2018-04-07 16:53 | disposition home or self-care (01) ==
LOC: ER 13:28
DX: R10.13 Epigastric pain (principal); D18.09 Hemangioma of other sites; F32.9 Major depressive disorder, single episode, unspecified; Z98.890 Other specified postprocedural states; Z60.2 Problems related to living alone
CPT/HCPCS: 36415; 76705-TC; 80048-TC; 80076-TC; 81000-TC; 83690-TC; 85025-TC; A4606; J2405; J3490; Q0162; Z7610

== ENCOUNTER 2018-10-22 19:33 | Emergency (ER) | payer OTHER, MEDICAID ==
[~2018-10-22] VITALS: Ht 162.6 cm; Wt 65.8 kg
[~2018-10-22 19:33] MED LIST changes: +HYDR-4384 PO; -HYDR-552 PO
--- NOTE | 2018-10-22 20:00 | NUR ---
PT BIBSELF C/O MIDSTERNAL CHEST PRESSURE, ACHING. PT ALSO C/O HEADACHE. PT DENIES SOB, N/V/D, DIZZINESS. PT AAOX4. RESPIRATIONS EVEN AND UNLABORED. SKIN WARM AND INTACT. NO ACUTE DISTRESS NOTED AT THIS TIME.
[2018-10-22] MEDS ORDERED: ASPIRIN 81 MG TAB.CHEW PO ONE (21:00)
--- NOTE | 2018-10-22 21:00 | NUR ---
ER PA AT BEDSIDE FOR EVALUATION
--- NOTE | 2018-10-22 21:11 | NUR ---
COMPLIANCE DIRECTOR AT BEDSIDE FOR BLOOD DRAW
[2018-10-22 21:25] LABS: BASOPHILS % (AUTO) 0.3 % (0.0-2.0); EOSINOPHILS % (AUTO) 1.7 % (0.0-6.0); HEMATOCRIT 41 % (33-45); HEMOGLOBIN 13.6 g/dL (11.5-14.8); LYMPHOCYTES # (AUTO) 2.7 /CMM (0.8-4.8); LYMPHOCYTES % (AUTO) 43.4 % (20.0-44.0); MEAN CORPUSCULAR HGB CONC 34 g/dl (31.0-36.0); MEAN CORPUSCULAR VOLUME 85 fL (82-100); MONOCYTES # (AUTO) 0.4 /CMM (0.1-1.30); MONOCYTES % (AUTO) 6.3 % (2.0-12.0); NEUTROPHILS # (AUTO) 2.9 /CMM (1.8-8.9); NEUTROPHILS % (AUTO) 48.3 % (43.0-81.0); PLATELET COUNT (AUTO) 306 /CMM (150-450); RED BLOOD CELL COUNT(AUTO) 4.74 MIL/uL (4.0-5.2); WHITE BLOOD COUNT (AUTO) 6.1 K/uL (4.3-11.0)
[2018-10-22] MEDS ORDERED: ASPIRIN 81 MG TAB.CHEW ONE (21:27)
[2018-10-22 21:31] LABS: CALCIUM, SERUM 8.9 mg/dL (8.5-10.1); CARBON DIOXIDE 24 mmol/L (21-32); CHLORIDE 106 mmol/L (98-107); CREATININE 0.7 mg/dL (0.6-1.3); GLUCOSE 95 mg/dL (74-106); POTASSIUM 3.7 mmol/L (3.5-5.1); SODIUM SERUM 141 mmol/L (136-145); UREA NITROGEN, BLOOD 14 mg/dL (7-18)
[2018-10-22] MEDS ORDERED: ONDANSETRON 4 MG TAB.RAPDIS ONE (21:49)
[2018-10-22] MEDS ORDERED: ONDANSETRON 4 MG TAB.RAPDIS SL ONE (22:00)
[2018-10-22 22:39] LABS: APPEARANCE,URINE Clear (CLEAR); BILIRUBIN,URINE Negative (NEGATIVE); BLOOD, URINE Negative Ery/uL (NEGATIVE); COLOR,URINE Yellow (YELLOW); KETONES,URINE Negative (NEGATIVE); LEUKOCYTE ESTERASE ,URINE Negative (NEGATIVE); NITRITE, URINE Negative (NEGATIVE); PROTEIN,URINE Negative (NEGATIVE); UGLUCOSE Negative (NEGATIVE); UROBILINOGEN,URINE 0.2 EU/dL (0.2)
--- NOTE | 2018-10-23 | NUR ---
CARTOGRAPHY PROFESSOR AT BEDSIDE FOR BLOOD DRAW
[2018-10-23] MEDS ORDERED: ACETAMINOPHEN ES 500 MG TABLET PO ONE (00:30)
--- NOTE | 2018-10-23 00:30 | NUR ---
PT RESTING IN BED, ON CONTINUOUS LUGGER. NO ACUTE DISTRESS NOTED AT THIS TIME. WILL CONTINUE TO MONITOR
[2018-10-23] MEDS ORDERED: ACETAMINOPHEN ES 500 MG TABLET ONE (00:34)
[2018-10-23] MEDS ORDERED: LORAZEPAM 1 MG TABLET ONE (00:43)
[2018-10-23] MEDS ORDERED: LORAZEPAM 1 MG TABLET PO ONE (01:00)
[2018-10-23] MEDS ORDERED: ONDANSETRON 4 MG TAB.RAPDIS ONE (01:21)
--- NOTE | 2018-10-23 01:22 | NUR ---
PT C/O NAUSEA. MD AWARE. PER VERBAL MD ORDER, ADMINISTERED ZOFRAN 4MG ODT X1 NOW
[2018-10-23] MEDS ORDERED: ONDANSETRON 4 MG TAB.RAPDIS SL ONE (01:30)
--- NOTE | 2018-10-23 01:40 | NUR ---
Patient discharged to home in stable condition. Written and verbal after care instructions given. Patient verbalizes understanding of instruction. IV removed. Catheter intact and site benign. Pressure and 4x4 applied to site. No bleeding noted.Pt ambulatory with a steady gait, instructed not to drive.
[2018-10-23 01:41] VITALS: BP 116/64
== END 2018-10-23 01:41 | disposition home or self-care (01) ==
LOC: ER 19:35
DX: R07.89 Other chest pain (principal); R51 Headache; R11.0 Nausea; F41.9 Anxiety disorder, unspecified; F32.9 Major depressive disorder, single episode, unspecified; Z98.890 Other specified postprocedural states; Z60.2 Problems related to living alone; Z79.899 Other long term (current) drug therapy
CPT/HCPCS: 36415; 71045-TC; 80048-TC; 81000-TC; 84484-TC; 84703-TC; 85025-TC; 85730-TC; 87400; Q0162

== ENCOUNTER 2018-10-26 14:49 | Inpatient (IN) | payer OTHER, MEDICAID ==
[~2018-10-26] VITALS: Ht 165.1 cm; Wt 61.8 kg
--- NOTE | 2018-10-26 15:11 | NUR ---
C/O LT LOWER ABD PAIN W/ N/V/D SINCE YESTERDAY PER PT. PAIN IS SHARP AND BURNING, 06/11. PT IS AMB, AOX4, VSS, RR EVEN AND UNLABORED. SKIN INTACT. DENIES SOB, DIZZINESS, WEAKNESS. HOOKED TO MONITOR. READY FOR EVAL.
[2018-10-26] MEDS ORDERED: ONDANSETRON HCL/PF 4 MG/2 ML VIAL ONE ×2 (15:50→20:46)
[2018-10-26] MEDS ORDERED: FAMOTIDINE/PF INJ 20 MG/2 ML VIAL IV ONE ×2 (15:51→16:00)
[2018-10-26] MEDS ORDERED: MORPHINE SULFATE INJ 2 MG/ML DISP.SYRIN ONE ×3 (15:51→21:33)
[2018-10-26 15:53] LABS: BASOPHILS % (AUTO) 0.3 % (0.0-2.0); HEMATOCRIT 37 % (33-45); HEMOGLOBIN 12.6 g/dL (11.5-14.8); LYMPHOCYTES # (AUTO) 2.2 /CMM (0.8-4.8); LYMPHOCYTES % (AUTO) 33.2 % (20.0-44.0); MEAN CORPUSCULAR HGB CONC 34 g/dl (31.0-36.0); MEAN CORPUSCULAR VOLUME 84 fL (82-100); MONOCYTES # (AUTO) 0.4 /CMM (0.1-1.30); MONOCYTES % (AUTO) 6.5 % (2.0-12.0); NEUTROPHILS # (AUTO) 3.9 /CMM (1.8-8.9); PLATELET COUNT (AUTO) 276 /CMM (150-450); RED BLOOD CELL COUNT(AUTO) 4.43 MIL/uL (4.0-5.2); WHITE BLOOD COUNT (AUTO) 6.5 K/uL (4.3-11.0)
[2018-10-26 15:58] LABS: CALCIUM, SERUM 8.5 mg/dL (8.5-10.1); CARBON DIOXIDE 24 mmol/L (21-32); CHLORIDE 106 mmol/L (98-107); CREATININE 0.9 mg/dL (0.6-1.3); GLUCOSE 98 mg/dL (74-106); POTASSIUM 3.2 mmol/L (3.5-5.1); SODIUM SERUM 138 mmol/L (136-145); UREA NITROGEN, BLOOD 13 mg/dL (7-18)
[2018-10-26] MEDS ORDERED: IV NS 0.9% 1,000 ML BAG IV ONE ×2 (16:00→17:30)
[2018-10-26] MEDS ORDERED: ONDANSETRON HCL/PF 4 MG/2 ML VIAL IVP ONE (16:00)
[2018-10-26] MEDS ORDERED: MORPHINE SULFATE INJ 2 MG/ML DISP.SYRIN IV ONE ×3 (16:00→22:00)
[2018-10-26 16:04] LABS: ALANINE AMINOTRANSFERASE 30 U/L (12-78); ALBUMIN 3.9 g/dL (3.4-5.0); ALKALINE PHOSPHATASE 79 U/L (46-116); ASPARTATE AMINOTRANSFERASE 12 U/L (15-37); BILIRUBIN,DIRECT 0.1 mg/dL (0.0-0.2); BILIRUBIN,TOTAL 0.2 mg/dL (0.2-1.0); LIPASE 393 U/L (73-393); TOTAL PROTEIN, SERUM 7.5 g/dL (6.4-8.2)
--- NOTE | 2018-10-26 17:23 | NUR ---
PT RESTING IN BED. STILL HAS PAIN. NOTIFIED.
--- NOTE | 2018-10-26 18:07 | NUR ---
PT TAKEN TO CT VIA ED
[2018-10-26] MEDS ORDERED: CT SWABBABLE VALVE TRANS SET 1 EA INFUS.SET MC ONE (18:08)
[2018-10-26] MEDS ORDERED: IV NS 0.9% 250 ML IV ONE (18:08)
[2018-10-26] MEDS ORDERED: IOHEXOL-300 100 ML VIAL IV ONE (18:08)
--- NOTE | 2018-10-26 20:07 | NUR ---
PT RESTING IN BED. PAIN IS INTERMITTENT. MD NOTIFIED.
[2018-10-26] MEDS ORDERED: ONDANSETRON HCL/PF - ER 4 MG/2 ML VIAL IV ONE (21:00)
[2018-10-26 21:30] LABS: APPEARANCE,URINE Clear (CLEAR); BILIRUBIN,URINE Negative (NEGATIVE); BLOOD, URINE Negative Ery/uL (NEGATIVE); COLOR,URINE Yellow (YELLOW); KETONES,URINE Negative (NEGATIVE); LEUKOCYTE ESTERASE ,URINE Negative (NEGATIVE); NITRITE, URINE Negative (NEGATIVE); PH,URINE 5.5 (5.0-8.0); PROTEIN,URINE Negative (NEGATIVE); UGLUCOSE Negative (NEGATIVE); UROBILINOGEN,URINE 0.2 EU/dL (0.2)
[2018-10-26] MEDS ORDERED: ACETAMINOPHEN 325 MG TABLET PO PRN (22:00)
[2018-10-26] MEDS ORDERED: MAGNESIUM HYDROXIDE 30 ML UDC PO PRN (22:00)
[2018-10-26] MEDS ORDERED: MAG HYDROX/AL HYDROX/SIMETH 30 ML UDC PO PRN (22:00)
--- NOTE | 2018-10-26 22:31 | NUR ---
REPORT GIVEN TO GLORIA FOR [facility]
--- NOTE | 2018-10-26 22:46 | NUR ---
PT TRANSFERRED TO FLOOR
[2018-10-26 22:55] VITALS: BP 107/71
[2018-10-26] MEDS: IV NS 0.9% 1,000 ML IV PRN (23:00)
[2018-10-26] MEDS: HYDROMORPHONE INJ 2 MG/ML DISP.SYRIN IV PRN (23:15)
[2018-10-26 23:19] LABS: AMYLASE 84 U/L (25-115); LIPASE 387 U/L (73-393)
[2018-10-27] MEDS: LORAZEPAM INJ 2 MG/ML VIAL IV PRN ×3 (00:24→14:24)
--- NOTE | 2018-10-27 00:45 | NUR ---
Receive pt via gurney at 10/26/17 8921 admit to MS Unit pt a/o x4 respirations even and unlabored. vs stable. complaint of abdominal pain since yesterday. medicated with pain medication with relief. head to toe assessment is done skin is intact, needs attended. kept clean and dry and comfort. will continue to monitor.
[2018-10-27] MEDS: HYDROMORPHONE INJ 2 MG/ML DISP.SYRIN IV PRN ×2 (05:08→11:54)
--- NOTE | 2018-10-27 05:55 | NUR ---
RN CLOSING NOTE PT IN BED ASLEEP AND EASILY AWAKEN, 2LPM VIA NC 02 SAT AT 98%. RESPIRATIONS EVEN AND UNLABORED. KEPT CLEAN AND DRY AND COMFORT, NEEDS ATTENDED AND ANTICIPATED. NURSING CARE RENDERED. SAFETY MEASURES IN PLACE, CALL LIGHT WITHIN REACH. WILL ENDORSE TO THE NEXT SHIFT. Addendum: 10/27/18 at 0559 by GLORIA VIZCARRA RN PT WANTS TO USE NC OXYGEN DESPITE 02 SAT AT 96% R.A PER PT IT MAKES HER MORE COMFORTABLE.
--- NOTE | 2018-10-27 07:35 | NUR ---
RN NOTES PATIENT A/OX4, CRYING AND MOANING, FEELING ANXIOUS. ATIVAN GIVEN 1MG. PATIENT FELT IMMEDIATE RELIEF, FELL ASLEEP, BUT EASILY AWAKEN. IVF INFUSING AND TOLERATING WELL, NEEDS ATTENDED, CALL LIGHT WITHIN REACH, WILL CONTINUE TO MONITOR.
[2018-10-27 07:47] LABS: BASOPHILS % (AUTO) 0.4 % (0.0-2.0); EOSINOPHILS % (AUTO) 1.7 % (0.0-6.0); HEMATOCRIT 37 % (33-45); HEMOGLOBIN 12.2 g/dL (11.5-14.8); LYMPHOCYTES # (AUTO) 2.6 /CMM (0.8-4.8); LYMPHOCYTES % (AUTO) 39.7 % (20.0-44.0); MEAN CORPUSCULAR HGB CONC 33 g/dl (31.0-36.0); MEAN CORPUSCULAR VOLUME 85 fL (82-100); MONOCYTES # (AUTO) 0.4 /CMM (0.1-1.30); MONOCYTES % (AUTO) 6.2 % (2.0-12.0); NEUTROPHILS # (AUTO) 3.4 /CMM (1.8-8.9); PLATELET COUNT (AUTO) 237 /CMM (150-450); RED BLOOD CELL COUNT(AUTO) 4.32 MIL/uL (4.0-5.2); WHITE BLOOD COUNT (AUTO) 6.6 K/uL (4.3-11.0)
[2018-10-27 08:00] VITALS: BP 98/63
[2018-10-27 08:00] LABS: ALBUMIN 3.4 g/dL (3.4-5.0); BILIRUBIN,DIRECT 0.1 mg/dL (0.0-0.2); BILIRUBIN,TOTAL 0.4 mg/dL (0.2-1.0); CALCIUM, SERUM 7.6 mg/dL (8.5-10.1); CREATININE 0.8 mg/dL (0.6-1.3); PHOSPHORUS 3.2 mg/dL (2.5-4.9); POTASSIUM 3.4 mmol/L (3.5-5.1); TOTAL PROTEIN, SERUM 6.4 g/dL (6.4-8.2)
[2018-10-27] MEDS: PANTOPRAZOLE 40 MG VIAL IV SCH (08:15)
[2018-10-27] MEDS ORDERED: ESCI10TA PO (08:43)
[2018-10-27] MEDS ORDERED: MIRT15TA7 PO (08:43)
[2018-10-27] MEDS ORDERED: TOPI100T38 PO (08:43)
[2018-10-27] MEDS ORDERED: POTASSIUM CHLORIDE 20 MEQ POWDER PACKET PO SCH (09:30)
[2018-10-27] MEDS ORDERED: HYDR-3895 PO (09:49)
[2018-10-27] MEDS ORDERED: PRAZ2CAP2 PO (09:49)
[2018-10-27] MEDS: ONDANSETRON HCL/PF 4 MG/2 ML VIAL IVP PRN ×2 (14:24→22:44)
[2018-10-27 16:00] VITALS: BP 123/76
--- NOTE | 2018-10-27 19:30 | NUR ---
RN NOTES PATIENT SEEN BY DR. ENGLE, RECOMMENDED TO DISCONTINUE DILAUDID AND ATIVAN, INFORMED DAVID LLOYD AND RECEIVED ORDER TO DC DILAUDID AND ATIVAN AND START NORCO 5-325MG. PATIENT STILL ANXIOUS, STATING SHE CANNOT BREATHE AND SOMETHING IS STUCK IN HER THROAT. SPO2 IS AT 100% IN ROOM AIR. VITALS STABLE, DR. ENGLE MADE AWARE. IVF INFUSING AND TOLERATING WELL. PATIENT'S NEEDS ATTENDED AND MET. CALL LIGHT WITHIN REACH, ENDORSED TO TARIFF EXPERT FOR MARANDA.
--- NOTE | 2018-10-27 19:30 | NUR ---
RN OPENING NOTES Received patient in bed, alert, oriented x 4. Patient is anxious. Complaining of being jumpy. Peripheral IV infusing at 125mL/hr. Call chery and personal belongings within reach. Bed in low, locked position. Will continue to monitor accordingly
[2018-10-27 20:00] VITALS: BP 96/67
[2018-10-27] MEDS: HYDROCODONE/APAP 5/325MG 1 EACH TABLET PO PRN (20:06)
--- NOTE | 2018-10-27 20:07 | NUR ---
RN NOTES Patient c/o abdominal pain 05/12. [place] 5-325 PO given as ordered. Will continue to monitor
--- NOTE | 2018-10-27 21:45 | NUR ---
RN NOTES Patient is very anxious. Stated that she is scared and she has nightmares when she closes her eyes. Informed Neri Mcnulty FLOUR TESTER. Order of Ativan 1mg received- given as ordered. Will continue to monitor.
[2018-10-27] MEDS ORDERED: LORAZEPAM INJ 2 MG/ML VIAL IV PRN (22:00)
[2018-10-27 23:22] VITALS: BP 104/62
[2018-10-27] MEDS: TEMAZEPAM 15 MG CAPSULE PO PRN (23:23)
[2018-10-27] MEDS: IV NS 0.9% 1,000 ML IV PRN (23:30)
--- NOTE | 2018-10-27 23:30 | NUR ---
RN NOTES Urine sample and stool sample obtained.
[2018-10-28] MEDS ORDERED: HYDROMORPHONE 1 MG/1 ML DISP.SYRIN IV PRN (01:00)
[2018-10-28 06:45] VITALS: BP 107/65
--- NOTE | 2018-10-28 06:46 | NUR ---
RN NOTES Patient c/o abdominal pain, 06/11. Dilaudid 0.5 mg given as ordered. Excess wasted with another RN
--- NOTE | 2018-10-28 07:00 | NUR ---
RN CLOSING NOTES Patient alert, oriented x 4. Complaining of pain, but was already given diludid 0.5mg. Explained to the patient to give medication time to work. Peripheral IV infusing at 125mL/hr. Vital signs are stable. Patient is NPO since midnight. All due medications given as ordered. Will endorse MARANDA to oncoming RN
[2018-10-28 07:08] LABS: OCCULT BLOOD STOOL NEGATIVE (NEGATIVE)
[2018-10-28 07:36] LABS: BASOPHILS % (AUTO) 0.2 % (0.0-2.0); EOSINOPHILS % (AUTO) 3.1 % (0.0-6.0); HEMATOCRIT 36 % (33-45); HEMOGLOBIN 12.2 g/dL (11.5-14.8); LYMPHOCYTES # (AUTO) 2.6 /CMM (0.8-4.8); LYMPHOCYTES % (AUTO) 37.6 % (20.0-44.0); MEAN CORPUSCULAR HGB CONC 34 g/dl (31.0-36.0); MEAN CORPUSCULAR VOLUME 84 fL (82-100); MONOCYTES # (AUTO) 0.5 /CMM (0.1-1.30); NEUTROPHILS # (AUTO) 3.5 /CMM (1.8-8.9); NEUTROPHILS % (AUTO) 51.1 % (43.0-81.0); PLATELET COUNT (AUTO) 232 /CMM (150-450); RED BLOOD CELL COUNT(AUTO) 4.29 MIL/uL (4.0-5.2); WHITE BLOOD COUNT (AUTO) 6.8 K/uL (4.3-11.0)
[2018-10-28 07:54] LABS: CALCIUM, SERUM 8.4 mg/dL (8.5-10.1); CREATININE 0.7 mg/dL (0.6-1.3); PHOSPHORUS 2.9 mg/dL (2.5-4.9); POTASSIUM 3.6 mmol/L (3.5-5.1)
--- NOTE | 2018-10-28 07:57 | NUR ---
MS/RN OPENING NOTE PATIENT IN BED IN STABLE CONDITION. A/O X 4. NO SIGNS OF ACUTE DISTRESS. COMPLAIN OF ABDOMINAL PAIN RATED 8/10 RADIATING TO BACK. DILAUDID 0.5MG IVP GIVEN AT 0645AM. NPO STATUS AT THIS TIME SECONDARY TO SCHEDULE EGD TODAY. ALL NEEDS ATTENDED TO. CALL LIGHT WITHIN REACH. WILL CONTINUE TO HVIEAS2O TO ENSURE SAFETY.
[2018-10-28 08:00] VITALS: BP 112/57
[2018-10-28] MEDS: PANTOPRAZOLE 40 MG VIAL IV SCH (08:26)
[2018-10-28] MEDS ORDERED: MIDAZOLAM HCL 2 MG/2ML VIAL ONE (11:05)
[2018-10-28 16:00] VITALS: BP 104/66
--- NOTE | 2018-10-28 18:37 | NUR ---
MS/RN NOTES PATIENT TOLERATED FULL LIQUID DIET WELL. POSSIBLE DISCHARGE PER DR. DEVON THAKKAR. PATIENT WANTS TO SPEAK WITH DOCTOR PRIOR DISCHARGE. DR OSORIO NOTIFIED. PER DR OSORIO, HE WILL COME UP AND TALK TO PATIENT SHORTLY. A/O X 4. NO SIGNS OF ACUTE DISTRESS. NO COMPLAIN OF PAIN OR DISCOMFORT. ALL NEEDS ATTENDED TO. CALL LIGHT WITHIN REACH. WILL ENDORSE TO NEXT SHIFT FOR CONTINUITY OF CARE.
--- NOTE | 2018-10-28 19:35 | NUR ---
RN MS OPENING NOTES RECEIVED PT IN BED, AWAKE ALERT ORIENTED X4 BREATHING EVEN AND UNLABORED ON ROOM AIR, COMPLAINS OF ABDOMINAL PAIN 06/11, PT PULLED OUT IV ACCESS DUE TO PENDING DISCHARGE. PT AGREES TO HAVE IV LINE REINSERTED TO ADMINISTER ZOFRAN. BED IN LOWEST LOCKED POSITION ,CALL LIGHT WITHIN REACH AT ALL TIMES, WILL CONTINUE TO MONITOR NORA ALBA TO COME AND SPEAK TOP HER PRIOR TO DISCHARGE
[2018-10-28] MEDS ORDERED: ONDANSETRON HCL 4 MG/5 ML SOLUTION PO ONE (19:50)
[2018-10-28 20:00] VITALS: BP 102/68
[2018-10-28] MEDS ORDERED: MAG HYDROX/AL HYDROX/SIMETH 30 ML UDC PO ONE ×2 (20:00→21:30)
[2018-10-28] MEDS ORDERED: ONDANSETRON 4 MG TAB.RAPDIS SL ONE (20:00)
[2018-10-28] MEDS ORDERED: IV D5 LR 1,000 ML IV PRN (21:30)
[2018-10-28] MEDS ORDERED: LIDOCAINE VISCOUS 2% UD 15 ML UDC MM ONE (21:30)
[2018-10-28] MEDS ORDERED: BELLADONNA /PHENOBARB 5 ML UDC 5 ML UDC PO ONE (21:30)
[2018-10-28] MEDS ORDERED: TEMAZEPAM 15 MG CAPSULE PO PRN (22:00)
[2018-10-28] MEDS: TEMAZEPAM 15 MG CAPSULE PO PRN (22:11)
[2018-10-28] MEDS: ONDANSETRON HCL/PF 4 MG/2 ML VIAL IV PRN (23:27)
[2018-10-28] MEDS: HYDROCODONE/APAP 5/325MG 1 EACH TABLET PO PRN (23:52)
--- NOTE | 2018-10-29 00:48 | NUR ---
PT COMPLAINING OF ABDOMINAL PAIN 06/11, ADMINISTERED MALOXX, ZOFRAN, AND NORCO, PT CONTINUES TO CRY IN PAIN ASKING FOR DILAUIDID. PER ARIANE, DO NOT GIVE DILAUDID OR ATIVAN.
[2018-10-29] MEDS: ONDANSETRON HCL/PF 4 MG/2 ML VIAL IV PRN (05:12)
--- NOTE | 2018-10-29 06:05 | NUR ---
RN MS CLOSING NOTES PT REMAINS IN BED, AWAKE ALERT ORIENTED X4 BREATHING EVEN AND UNLABORED ON ROOM AIR, COMPLAINS OF ABDOMINAL PAIN /, PER ARIANE NO DILAUDID GIVEN, MAALOX NOT YET DUE, PAGED DR MCCLURE TO GET MAALOX CHANGED TO q4 INSTEAD OF q6 OR GET AND ALTERNATIVE MED TO HELP HER GASTRITIS PAIN, NO RESPONSE. IV ACCESS ON THE L FA 20G WITH D5LR @75ML/HR. STOOL OB SAMPLE YET TO BE COLLECTED, PT AWARE, TOILET HAT IN PLACE. BED IN LOWEST LOCKED POSITION ,CALL LIGHT WITHIN REACH AT ALL TIMES, WILL ENDORSE TO DAY NURSE
--- NOTE | 2018-10-29 07:30 | NUR ---
RN MS NOTES PT IN BED, RESTING, COMPLAINING OF ABDOMINAL PAIN, OFFERED PAIN MEDICATION BUT PATIENT REFUSED, MD INFORMED, NO NAUSEA OR VOMITING NOTED, IV FLUIDS INFUSING WELL, CALL LIGHT WITHIN REACH, NEEDS ATTENDED.
[2018-10-29] MEDS: PANTOPRAZOLE 40 MG VIAL IV SCH (08:06)
[2018-10-29 08:47] VITALS: BP 104/66
[2018-10-29 08:50] VITALS: BP 104/66
--- NOTE | 2018-10-29 10:00 | NUR ---
RN MS NOTES PT IN BED, VISITED BY CASE MANAGEMENT STAFF, PT FOR DISCHARGE, DISCHARGE AND MEDICATION INSTRUCTIONS PROVIDED TO PT, VERBALIZED UNDERSTANDING, BELONGINGS ACCOUNTED FOR, INSTRUCTED PT TO FOLLOW UP WITH HER PRIMARY CARE PHYSICIAN, VERBALIZED UNDERSTANDING, ASSISTED TO HOSPITAL LOBBY BY RN, PICKED UP BY [employer] THAT PT ARRANGED, LEFT IN STABLE CONDITION.
== END 2018-10-29 10:00 | disposition home or self-care (01) | DRG 241 ==
LOC: ER 14:53 → MED 22:08
PROVIDERS: ADMIT Nurse Practitioner Acute Care; ATTEND Hospitalist
PROC: 0DB68ZX Excision of Stomach, Via Natural or Artificial Opening Endoscopic, Diagnostic (ICD-10-PCS; principal; 2018-10-28)
DX: K29.70 Gastritis, unspecified, without bleeding (principal); A08.4 Viral intestinal infection, unspecified; D18.03 Hemangioma of intra-abdominal structures; K58.0 Irritable bowel syndrome with diarrhea; E87.6 Hypokalemia; F41.9 Anxiety disorder, unspecified; F32.9 Major depressive disorder, single episode, unspecified; K57.30 Diverticulosis of large intestine without perforation or abscess without bleeding
CPT/HCPCS: 36415; 71045-TC; 74160-TC; 80048-TC; 80076-TC; 80305; 81000-TC; 82150-TC; 82272-TC; 83605-TC; 83690-TC; 83735-TC; 84100-TC; 84484-TC; 84703-TC; 85025-TC; 85730-TC; 87081-TC; 88305-TC; 88313-TC; 88342; C9113; G0378; J1170; J2060; J2250; J2270; J2405; J2704; J3490; J7030; J7050; Q0162; Q9967

== ENCOUNTER 2018-11-15 19:01 | Emergency (ER) | payer OTHER, MEDICAID ==
[~2018-11-15] VITALS: Ht 162.6 cm; Wt 62.6 kg
[~2018-11-15 19:01] MED LIST changes: -AMIT100T2 PO; +ESCI10TA PO; +HYDR-3895 PO; -HYDR-4384 PO; +PRAZ2CAP2 PO; +TOPI100T38 PO; -ZOLP10TA2 PO
--- NOTE | 2018-11-15 19:57 | NUR ---
PT BIB SELF FOR N/V/D, AND EPIGASTRIC PAIN; PT AAOX4, PT ON MONITOR, VSS, NAD NOTED, PENDING MD SUERO
[2018-11-15] MEDS ORDERED: ONDANSETRON HCL/PF 4 MG/2 ML VIAL IVP ONE (20:30)
[2018-11-15] MEDS ORDERED: IV NS 0.9% 1,000 ML BAG IV ONE (20:30)
[2018-11-15] MEDS ORDERED: diphenhydrAMINE HCL 50 MG/ML VIAL IV ONE ×2 (20:30→22:00)
[2018-11-15] MEDS ORDERED: PANTOPRAZOLE 40 MG VIAL IV ONE (20:30)
[2018-11-15] MEDS ORDERED: KETOROLAC TROMETHAMINE INJ 30 MG/ML VIAL IV ONE ×2 (20:30→21:30)
[2018-11-15] MEDS ORDERED: PANTOPRAZOLE 40 MG VIAL ONE (20:49)
[2018-11-15] MEDS ORDERED: KETOROLAC TROMETHAMINE 15 MG/ML VIAL ONE ×2 (20:49→21:30)
[2018-11-15] MEDS ORDERED: ONDANSETRON HCL/PF 4 MG/2 ML VIAL ONE (20:49)
[2018-11-15] MEDS ORDERED: diphenhydrAMINE HCL 50 MG/ML VIAL ONE ×2 (20:49→21:29)
[2018-11-15 20:52] LABS: BASOPHILS % (AUTO) 0.5 % (0.0-2.0); EOSINOPHILS % (AUTO) 1.6 % (0.0-6.0); HEMATOCRIT 39 % (33-45); HEMOGLOBIN 13.1 g/dL (11.5-14.8); LYMPHOCYTES # (AUTO) 2.4 /CMM (0.8-4.8); MEAN CORPUSCULAR HGB CONC 33 g/dl (31.0-36.0); MEAN CORPUSCULAR VOLUME 85 fL (82-100); MONOCYTES # (AUTO) 0.4 /CMM (0.1-1.30); MONOCYTES % (AUTO) 5.8 % (2.0-12.0); NEUTROPHILS # (AUTO) 3.2 /CMM (1.8-8.9); NEUTROPHILS % (AUTO) 53.1 % (43.0-81.0); PLATELET COUNT (AUTO) 264 /CMM (150-450); RED BLOOD CELL COUNT(AUTO) 4.62 MIL/uL (4.0-5.2); WHITE BLOOD COUNT (AUTO) 6.1 K/uL (4.3-11.0)
[2018-11-15] MEDS ORDERED: BENZOIN COMPOUND TINCT 60 ML BOTTLE ONE (20:53)
[2018-11-15 21:02] LABS: CARBON DIOXIDE 26 mmol/L (21-32); CHLORIDE 105 mmol/L (98-107); CREATININE 0.8 mg/dL (0.6-1.3); GLUCOSE 91 mg/dL (74-106); POTASSIUM 3.5 mmol/L (3.5-5.1); SODIUM SERUM 140 mmol/L (136-145); UREA NITROGEN, BLOOD 13 mg/dL (7-18)
[2018-11-15 21:07] LABS: ALANINE AMINOTRANSFERASE 21 U/L (12-78); ALBUMIN 4.4 g/dL (3.4-5.0); ALKALINE PHOSPHATASE 80 U/L (46-116); ASPARTATE AMINOTRANSFERASE 11 U/L (15-37); BILIRUBIN,DIRECT 0.1 mg/dL (0.0-0.2); BILIRUBIN,TOTAL 0.3 mg/dL (0.2-1.0); LIPASE 506 U/L (73-393); TOTAL PROTEIN, SERUM 7.9 g/dL (6.4-8.2)
[2018-11-15] MEDS ORDERED: LORAZEPAM INJ 2 MG/ML VIAL IV ONE (21:30)
[2018-11-15] MEDS ORDERED: LORAZEPAM INJ 2 MG/ML VIAL ONE (21:31)
--- NOTE | 2018-11-15 23:06 | NUR ---
Patient discharged to home in stable condition. Written and verbal after care instructions given. Patient verbalizes understanding of instruction. IV removed. Catheter intact and site benign. Pressure and 4x4 applied to site. No bleeding noted.
[2018-11-15 23:07] VITALS: BP 131/74
== END 2018-11-15 23:07 | disposition home or self-care (01) ==
LOC: ER 19:02
DX: R10.13 Epigastric pain (principal); R10.11 Right upper quadrant pain; R10.12 Left upper quadrant pain; R11.2 Nausea with vomiting, unspecified; R19.7 Diarrhea, unspecified; F41.9 Anxiety disorder, unspecified; R06.4 Hyperventilation; F32.9 Major depressive disorder, single episode, unspecified; Z98.890 Other specified postprocedural states; Z60.2 Problems related to living alone; Z79.899 Other long term (current) drug therapy
CPT/HCPCS: 36415; 71045; 74176; 76705; 80048; 80076; 83690; 84484; 85025; 93005; 96361; 96374; 96375; 99284; A4606; C9113; J1200 ×2; J1885 ×2; J2060; J2405; J7030